=== PATIENT | male | born 1985 | race Caucasian/White ===

== ENCOUNTER 2020-06-11 07:22 | Emergency (ER) | payer OTHER, SELFPAY ==
--- NOTE | ~2020-06-11 | CT_ITS ---
EXAMINATION: CT abdomen pelvis wo con CLINICAL INFORMATION: Reason for Exam R flank pain COMPARISON: No prior CT available for comparison. TECHNIQUE: Multidetector volumetric imaging was performed from the superior aspect of the liver through the pubic symphysis , noncontrasted study. Sagittal and coronal reformatted images were obtained on the technologist's workstation. This CT examination was performed using dose optimization techniques as appropriate, variously including the following: *Automated exposure control *Adjustment of mA and/or kV according to patient size (this includes techniques or standardized protocols for targeted exams where dose is matched to indication/reason for exam; i.e. extremities or head) *Use of iterative reconstruction technique DLP: 691 mGy-cm FINDINGS: LOWER THORAX: Included lung bases are clear. HEPATOBILIARY: No focal hepatic lesions. No biliary ductal dilatation. GALLBLADDER: Gallbladder unremarkable. SPLEEN: Spleen is normal in size. PANCREAS: No focal mass or ductal dilatation. STOMACH AND GASTROINTESTINAL TRACT: Stomach is grossly unremarkable. There is no bowel distention or thickening. Appendix is normal in size, hyperdense material in its tip. Clear periappendiceal fat. No CT evidence of appendicitis. ADRENALS: No adrenal nodules. KIDNEYS/URETERS: There is right renal hydronephrosis and hydroureter secondary to obstructing stone in the proximal right ureter which measure about 4 mm axially, no perinephric fat stranding, there are additional tiny 1 and 2 mm nonobstructing stones in the right kidney. And 2 mm nonobstructing stone in the left kidney. URINARY BLADDER: Partially decompressed. PELVIC VISCERA: Unremarkable PERITONEUM: No free air or fluid. LYMPH NODES: No lymphadenopathy. VASCULAR:Abdominal aorta normal in size, no aneurysm found. BONES, ABDOMINAL WALL AND SOFT TISSUES: Age-appropriate changes of the spine and skeletal system, no destructive osteolytic or osteosclerotic bone lesion found CT/CT abdomen pelvis wo con IMPRESSION: 1. Mild right renal hydronephrosis secondary to obstructing stone in the proximal right ureter measure about 4 mm in diameter. 2. There are additional tiny 1 and 2 mm nonobstructing stones in both kidneys. Perinephric fat remain clear.
[2020-06-11 07:55] VITALS: BP 147/88; PULSE 72; RESP 20; O2SAT 99; BMI 32.3
--- NOTE | 2020-06-11 08:06 | ED_ITS ---
HPI - Male Genitourinary General Chief complaint: Urogenital-Male Stated complaint: QUEST KIDNEY STONE BACK PAIN Time Seen by Provider: 06/11/20 08:04 Source: patient Mode of arrival: ambulatory Limitations: no limitations History of Present Illness HPI Narrative: R flank pain just prior to arrival radiates to lower abdomen MD Complaint: other (R flank pain) Onset (ago): hour(s) (1) Duration: constant Location: right flank Radiation: right inguinal region Severity: severe Quality: sharp Relieving factors: none Exacerbating factors: none Context: other (has known kidney stones) Associated symptoms: Reports nausea/vomiting Related Data Previous Rx's Medication Instructions Recorded hydrocodone-acetaminophen 1 tab PO Q6H PRN #15 tab 06/11/20 ondansetron 4 mg PO Q8H PRN #20 tab 06/11/20 prednisone 40 mg PO DAILY 5 Days #10 tab 06/11/20 tamsulosin 0.4 mg PO DAILY 5 Days #5 cap 06/11/20 Allergies Allergy/AdvReac Type Severity Reaction Status Date / Time No Known Allergies Allergy Verified 06/11/20 08:04 Review of Systems Review of Systems: Constitutional : No Fever, No Chills ENT/Mouth : No sore throat Eyes: No Eye Pain, No Swelling, No Redness Cardiovascular : No Chest Pain, No SOB Respiratory : No Cough, No Sputum, No Wheezing Gastrointestinal : positive Nausea, no Vomiting, No Diarrhea, positive abdominal pain Genitourinary : no Dysuria, no urinary frequency, no Hematuria, positive Flank Pain, no hesitancy Musculoskeletal : No joint pain, No Myalgias Skin : No Skin Lesions, No rash Neuro : No Weakness, No Numbness, No Headache Psych : No Anxiety/Panic, No Depression Heme/Lymph: No Bruising, No Lymphadenopathy Endocrine : No Polyuria, No Polydipsia All other systems reviewed and are negative PMFSH Past Medical History Attestation statement: The following information was validated with the patient. Medical History Kidney stones No known health problems Social History Social History (Updated 06/11/20 @ 08:08 by Sinai Kelley DO) Alcohol intake: never Smoking Status: Never smoker Smoked in Last 30 Days: No Use of substances other than those prescribed or required for medical reasons: No Advance Directives: No Advance Directives Information Provided: No Physical Exam Vital Signs: Vital Signs: Last Vital Signs Pulse 72 06/11/20 09:16 Resp 16 06/11/20 09:16 BP 113/76 06/11/20 09:16 Pulse Ox 97 06/11/20 09:16 Body Mass Index 32.3 Appearance: Alert. Oriented X3. No acute distress. Eyes: Pupils equal, round and reactive to light. ENT: Pharynx normal. Neck: Normal inspection. Neck supple. CVS: Normal heart rate and rhythm. Pulses normal. Respiratory: No respiratory distress. Breath sounds normal. Abdomen: Soft and nontender. Skin: Skin warm and dry. pale skin color. Normal skin turgor. Extremities: No lower extremity edema. No calf ttp Neuro: Oriented X 3. No motor deficit. No sensory deficit. Course Course Course Narrative: pain well controlled, no vomiting, stable for DC with Urology follow up MDM - Male Genitourinary MDM Narrative Medical decision making narrative: 34 yo male with known kidney stones but no prior episodes that caused pain comes in with R flank pain radiating to groin - at this time will need labs, UA, IV Toradol/morphine for pain, CT scan for renal colic. Lab Data Result diagrams: 06/11/20 08:06 06/11/20 08:06 Labs: Lab Results 06/11/20 06/11/20 06/11/20 Range/Units 08:06 08:06 08:06 WBC 8.0 (4.8-10.8) X10*3/uL RBC 5.08 (4.60-5.80) X10*6/uL Hgb 14.2 (14.0-18.0) g/dl Hct 43.0 (42-52) % MCV 84.6 (80-98) fL MCH 28.0 (27.0-33.0) pg MCHC 33.0 (31.0-36.0) g/dl RDW 12.3 (11.0-16.0) % Plt Count 282 (160-400) X10*3/uL MPV 10.0 (9.4-12.4) fL Immature Gran % (Auto) 0.2 (0.0-0.4) % Neut % (Auto) 51.0 (45-73) % Lymph % (Auto) 40.0 (20-40) % [place] % (Auto) 5.3 (2-11) % Eos % (Auto) 3.0 (0-4) % Baso % (Auto) 0.5 (0-2) % Lymph # (Auto) 3.2 (1.2-4.9) X10*3/uL [place] # (Auto) 0.4 (0.1-1.2) X10*3/uL Eos # (Auto) 0.2 (0.0-0.4) X10*3/uL Baso # (Auto) 0.0 (0.0-0.2) X10*3/uL Abs Immat Gran (auto) 0.02 (0.00-0.03) X10*3/uL Absolute Neuts (auto) 4.1 (2.0-8.3) X10*3/uL Absolute Nucleated RBC 0.000 (0.0-0.012) X10*3/uL Nucleated RBC % (auto) 0.0 (0.0-0.2) /100WBC Hold Blue Top SEE NOTE Sodium 140 (135-145) mmol/L Potassium 3.6 (3.3-5.1) mmol/L Chloride 106 (96-108) mmol/L Carbon Dioxide 22 (22-29) mmol/L Anion Gap 16 (12-20) BUN 19 H (9-16) mg/dL Creatinine 1.03 (0.5-1.4) mg/dL Estim Creat Clear Calc 123.2 Estimated GFR > 60 Random Glucose 139 H (60-115) mg/dL Calcium 9.0 (8.4-10.2) mg/dL Magnesium 2.1 (1.6-2.6) mg/dL Total Bilirubin 0.5 (0.0-1.0) mg/dL Direct Bilirubin 0.2 (0.0-0.5) mg/dL AST 23 (5-37) U/L ALT 57 H (0-40) U/L Alkaline Phosphatase 57 (39-117) U/L Total Protein 7.4 (6.5-8.0) g/dL Albumin 4.6 (3.5-5.0) g/dL Lipase 20 (8-78) U/L Urine Color Urine Appearance Urine pH (5.0-8.0) Ur Specific [place] (1.005-1.025) Urine Protein (NEG-TRACE) MG/DL Urine Glucose (UA) (NEG) MG/DL Urine Ketones (NEG) MG/DL Urine Blood (NEG) Urine Nitrite (NEG) Ur Leukocyte Esterase (NEG) 06/11/20 Range/Units 09:52 WBC (4.8-10.8) X10*3/uL RBC (4.60-5.80) X10*6/uL Hgb (14.0-18.0) g/dl Hct (42-52) % MCV (80-98) fL MCH (27.0-33.0) pg MCHC (31.0-36.0) g/dl RDW (11.0-16.0) % Plt Count (160-400) X10*3/uL MPV (9.4-12.4) fL Immature Gran % (Auto) (0.0-0.4) % Neut % (Auto) (45-73) % Lymph % (Auto) (20-40) % [place] % (Auto) (2-11) % Eos % (Auto) (0-4) % Baso % (Auto) (0-2) % Lymph # (Auto) (1.2-4.9) X10*3/uL [place] # (Auto) (0.1-1.2) X10*3/uL Eos # (Auto) (0.0-0.4) X10*3/uL Baso # (Auto) (0.0-0.2) X10*3/uL Abs Immat Gran (auto) (0.00-0.03) X10*3/uL Absolute Neuts (auto) (2.0-8.3) X10*3/uL Absolute Nucleated RBC (0.0-0.012) X10*3/uL Nucleated RBC % (auto) (0.0-0.2) /100WBC Hold Blue Top Sodium (135-145) mmol/L Potassium (3.3-5.1) mmol/L Chloride (96-108) mmol/L Carbon Dioxide (22-29) mmol/L Anion Gap (12-20) BUN (9-16) mg/dL Creatinine (0.5-1.4) mg/dL Estim Creat Clear Calc Estimated GFR Random Glucose (60-115) mg/dL Calcium (8.4-10.2) mg/dL Magnesium (1.6-2.6) mg/dL Total Bilirubin (0.0-1.0) mg/dL Direct Bilirubin (0.0-0.5) mg/dL AST (5-37) U/L ALT (0-40) U/L Alkaline Phosphatase (39-117) U/L Total Protein (6.5-8.0) g/dL Albumin (3.5-5.0) g/dL Lipase (8-78) U/L Urine Color YELLOW Urine Appearance CLEAR Urine pH 5.5 (5.0-8.0) Ur Specific [place] 1.020 (1.005-1.025) Urine Protein NEG (NEG-TRACE) MG/DL Urine Glucose (UA) NEG (NEG) MG/DL Urine Ketones NEG (NEG) MG/DL Urine Blood 3+ H (NEG) Urine Nitrite NEG (NEG) Ur Leukocyte Esterase NEG (NEG) Discharge Plan Discharge Clinical Impression: Renal colic Patient Disposition: Home, Self-Care Instructions: Renal Colic (ED) Additional Instructions: return to ED for any worsening symptoms or concerns if you do not feel better or feel like you passed the stone by Friday call Urologist Prescriptions: New hydrocodone-acetaminophen 5-325 mg tablet 1 tab PO Q6H PRN (Reason: pain) Qty: 15 RF: 0 prednisone 20 mg tablet 40 mg PO DAILY 5 Days Qty: 10 RF: 0 ondansetron 4 mg tablet,disintegrating 4 mg PO Q8H PRN (Reason: nausea and vomiting) Qty: 20 RF: 0 tamsulosin 0.4 mg capsule 0.4 mg PO DAILY 5 Days Qty: 5 RF: 0 Referrals: Willem Molina MD [Physician] - 2 days (if not better) Stand Alone Forms: Work/School Release
[2020-06-11 08:10] LABS: MANUAL DIFF FLAG NO
[2020-06-11 08:11] LABS: Basophils Percent Auto 0.5 % (0-2); Eosinophils Absolute Auto 0.2 X10*3/uL (0.0-0.4); Hemoglobin 14.2 g/dl (14.0-18.0); Imm Gran Abs Auto 0.02 X10*3/uL (0.00-0.03); Imm Gran Pct Auto 0.2 % (0.0-0.4); Lymphocytes Absolute Auto 3.2 X10*3/uL (1.2-4.9); Mean Corpuscular Volume 84.6 fL (80-98); Monocytes Absolute Auto 0.4 X10*3/uL (0.1-1.2); Monocytes Percent Auto 5.3 % (2-11); Neutrophils Absolute Auto 4.1 X10*3/uL (2.0-8.3); Platelet Count 282 X10*3/uL (160-400); Red Blood Count 5.08 X10*6/uL (4.60-5.80); Red Cell Distribution Width 12.3 % (11.0-16.0)
[2020-06-11] MEDS: 0.9 % Sodium Chloride 1,000 ML 999 ML IVCONT (08:11)
[2020-06-11] MEDS: ondansetron HCL 4 MG/2 ML VIAL IVPUSH (08:11)
[2020-06-11] MEDS: Ketorolac Tromethamine 30 MG/ML VIAL IVPUSH (08:11)
[2020-06-11] MEDS: Morphine Sulfate 4 MG/ML CARTRIDGE IVPUSH (08:11)
[2020-06-11 08:39] LABS: Alanine Aminotransferase 57 U/L (0-40); Albumin Level 4.6 g/dL (3.5-5.0); Alkaline Phosphatase 57 U/L (39-117); Anion Gap 16 (12-20); Aspartate Amino Transferase 23 U/L (5-37); Bilirubin Direct 0.2 mg/dL (0.0-0.5); Bilirubin Total 0.5 mg/dL (0.0-1.0); Blood Urea Nitrogen 19 mg/dL (9-16); Carbon Dioxide 22 mmol/L (22-29); Chloride 106 mmol/L (96-108); Creatinine Clr Calc Pharmacy 123.2; Estimated Glomerular Filt Rate > 60; Glucose Random 139 mg/dL (60-115); Lipase 20 U/L (8-78); Magnesium 2.1 mg/dL (1.6-2.6); Potassium 3.6 mmol/L (3.3-5.1); Sodium 140 mmol/L (135-145); Total Protein 7.4 g/dL (6.5-8.0)
[2020-06-11 09:16] VITALS: BP 113/76; PULSE 72; RESP 16; O2SAT 97
[2020-06-11] MEDS: Tamsulosin HCL 0.4 MG CAPSULE PO (09:53)
[2020-06-11] MEDS: methylPREDNISolone Sod Succ/PF 125 MG/2 ML VIAL 60 MG IVPUSH (09:55)
[2020-06-11 10:19] LABS: Glucose Urine UA NEG (NEG); Leukocyte Esterase Urine NEG (NEG); Nitrite Urine NEG (NEG); PH 5.5 (5.0-8.0); Urine Blood 3+ (NEG); Urine Ketones NEG (NEG); Urine Protein NEG (NEG-TRACE)
[2020-06-11 10:25] LABS: Appearance Urine CLEAR; Color Urine YELLOW
[2020-06-11 10:50] LABS: Mucus Urine TRACE /LPF; WBC Urine 0 /HPF (0-4)
== END 2020-06-11 11:41 | disposition home or self-care (01) ==
PROVIDERS: Emergency Provider Emergency Medicine; PCP Internal Medicine
DX: N13.2 Hydronephrosis with renal and ureteral calculous obstruction (principal); Z87.442 Personal history of urinary calculi
CPT/HCPCS: 36415; 74176; 80048; 80076; 81001; 81003; 83690; 83735; 85025; 96361; 96374; 96375; 99284; 99285; J1885; J2270; J2405; J2930

== ENCOUNTER → 2020-06-20 11:14 | Outpatient (BNVA) | payer OTHER, SELFPAY | PROVIDERS: PCP Internal Medicine; Visit Provider Urology ==

== ENCOUNTER 2020-06-29 09:25 | Outpatient (REF) | payer OTHER, SELFPAY ==
--- NOTE | ~2020-06-29 | US_ITS ---
EXAMINATION: US RETROPERITONEAL LIMITED (RENAL ONLY) CLINICAL INFORMATION: Renal calculus. COMPARISON: CTA abdomen of 06/11/2020. TECHNIQUE: Bilateral renal ultrasound. FINDINGS: RIGHT KIDNEY: 12.2 x 5.7 x 5.8 cm (SAG x AP x TRV). The kidney is normal in size, contour, and echogenicity. Renal cortical thickness is normal. Within the upper- to midpole, there is an echogenic focus measuring 5 mm in diameter and likely represents a nonobstructing calculus. No hydronephrosis. LEFT KIDNEY: 11.9 x 5.3 x 6.3 cm (SAG x AP x TRV). Within the midpole, there is a 4 mm echogenic focus, likely representing a nonobstructing calculus. Renal cortical thickness is normal. No focal parenchymal lesion. No hydronephrosis. US/US renal BI IMPRESSION: Bilateral nephrolithiasis without evidence of obstructive uropathy.
== END 2020-06-29 09:26 | disposition home or self-care (01) ==
LOC: HO.US 09:25
PROVIDERS: Visit Provider Urology
DX: N20.0 Calculus of kidney (principal)
CPT/HCPCS: 76775

== ENCOUNTER → 2020-07-11 10:23 | Outpatient (BNVA) | payer OTHER, SELFPAY | PROVIDERS: Visit Provider Urology ==

== ENCOUNTER 2021-06-14 08:55 | Outpatient (REF) | payer OTHER, SELFPAY ==
--- NOTE | ~2021-06-14 | US_ITS ---
EXAMINATION: US RETROPERITONEAL LIMITED (RENAL ONLY) CLINICAL INFORMATION: Renal stones. COMPARISON: CT abdomen and pelvis 06/11/2020. Renal ultrasound 06/29/2020. TECHNIQUE: Real-time imaging of the kidneys. FINDINGS: RIGHT KIDNEY: 11.9 x 6.5 x 6.7 cm (SAG x AP x TRV). The kidney is normal in size, contour, and echogenicity. Renal cortical thickness is normal. There is a small 5 mm cyst exophytic to the midpole. No renal calculi or hydronephrosis. Previously identified right renal stone is not seen. LEFT KIDNEY: 11.1 x 5.6 x 6 cm (SAG x AP x TRV). The kidney is normal in size, contour, and echogenicity. Renal cortical thickness is normal. There is a 5 x 6 mm stone in the midpole. No focal parenchymal lesions or hydronephrosis. US/US renal BI IMPRESSION: Left renal stone. Small right renal cyst.
== END 2021-06-14 08:56 | disposition home or self-care (01) ==
LOC: HO.US 08:55
PROVIDERS: Visit Provider Urology
DX: N20.0 Calculus of kidney (principal)
CPT/HCPCS: 76775

== ENCOUNTER → 2021-07-25 12:58 | Outpatient (BNVA) | payer OTHER, SELFPAY | PROVIDERS: Visit Provider Urology | DX: N20.0 Calculus of kidney (principal) | CPT/HCPCS: Q3014 ==

== ENCOUNTER → 2021-10-25 07:45 | Outpatient (BNVA) | payer OTHER, SELFPAY | PROVIDERS: Visit Provider Internal Medicine | DX: S50.02XA Contusion of left elbow, initial encounter (principal); W22.8XXA Striking against or struck by other objects, initial encounter | CPT/HCPCS: 73080; 99203 ==

== ENCOUNTER 2021-11-06 07:28 | Outpatient (REF) | payer OTHER, SELFPAY ==
--- NOTE | ~2021-11-06 | XR_ITS ---
EXAMINATION: XR ELBOW, LEFT CLINICAL INFORMATION: Pain COMPARISON: Previous x-ray October 2021 TECHNIQUE: AP, lateral, and oblique views of the left elbow. FINDINGS: There is an olecranon osteophyte at the triceps tendon insertion. There is a lucency at the base of the osteophyte again questionable for fracture. This is similar to previous exam. Overlying soft tissues are normal. There is a well-corticated soft tissue ossification adjacent to the posterior superior olecranon probably representing an accessory ossicle. No other fracture. Bone alignment is normal. Joint spaces are normal. There is no joint effusion. XR/XR elbow LT min 3V IMPRESSION: Lucency at the base of the olecranon osteophyte questionable for fracture. This is similar to 10/25/2021 exam. Overlying soft tissues are normal. Clinical correlation recommended.
== END 2021-11-06 07:29 | disposition home or self-care (01) ==
LOC: HO.HOSX 07:28
PROVIDERS: Visit Provider Physician Assistant
DX: S46.302A Unspecified injury of muscle, fascia and tendon of triceps, left arm, initial encounter (principal)
CPT/HCPCS: 73080; 99202

== ENCOUNTER 2021-11-16 10:45 | Outpatient (RCR) | payer OTHER, SELFPAY ==
--- NOTE | 2021-11-16 13:02 | MHC.OT.OEV ---
[address] [phone] F: [phone] Occupational Therapy Evaluation Diagnosis: Triceps avulsion . Injury of triceps Date of Onset: 10/25/21 Date of Surgery: Attending Provider: Adi West PA-C Prescribed Treatment: Eval and treat , Gentle ROM ex MD Follow Up Appointment: 12/03/21 History of Current Condition: Pt reports hitting his elbow on a seat belt column while working XR taken and pt referred to Orthopedics here at [facility]. 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 avoiding golf and body wt ex, otherwise no difficulty doing house and yard work, painting rooms. Sleep: WNL Driving: WNL Vision: Balance: Pain Assessment Pain Score: 5 Pain Scale Used: Numeric (0 - 10) Pain Location and Description: Denies pain unless elbow is bumped, brief pain at ~5 Aggravating Factors: Only brief with bumping elbow Alleviating Factors: NA Skin and Soft Tissue Assessment Skin and Soft Tissue: Comments: No abnormalities noted Nerve assessment Ulnar Nerve: Median Nerve: Radial Nerve: Comments: Sensory Assessment Temperature: Light Touch: WNL Proprioception: Vibration: Comments: Edema Assessment Upper Extremity: WNL Lower Extremity: Comments: Dexterity Assessment Dexterity: WNL Comments: Special Tests Comments: AROM(PROM) Strength Cervical Cervical Flexion: Cervical Extension: Cervical Lateral Flexion: Cervical Rotation: Comments: Shoulder Flexion: Extension: Abduction: Internal Rotation: External Rotation: Comments: WNL. Foreward head , round , sloping shoulders bilaterally Flexion: Extension: Abduction: Internal Rotation: External Rotation: Comments: WNL Elbow Flexion: Extension: Pronation: Supination: Comments: WNL Flexion: Extension: Pronation: Supination: Comments: Wrist Flexion: Extension: Ulnar Deviation: Radial Deviation: Comments: WNL Flexion: Extension: Ulnar Deviation: Radial Deviation: Comments: Thumb Thumb CMC Flexion: Thumb MCP Flexion: Thumb IP Flexion: Radial Abduction: Palmar Abduction: Keavy (Kapandji 0-10): Comments: WNL Digits Index MCP: PIP: DIP: Long MCP: PIP: DIP: Ring MCP: PIP: DIP: Small MCP: PIP: DIP: Comments: Gross Grasp: R 125 lb L 105 lb painfree Lateral Pinch: Two-Point Pinch: Three-Jaw Oumar: Comments: WNL Patient Education Primary Language: Frisian Customer Service Assistant Required: No Current Knowledge: Understands information with skills for self-management Teaching Method: Demonstration Verbal Education Needs Identified on Evaluation: How did patient/family demonstrate learning? Patient demonstrates Patient verbalizes Barriers to Learning: None Readiness for Learning: Accepting Who was educated? 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 He is indep in HEP for maintaining mobility I anticipate pt to begin resuming his gym work outs following his follow up with Orthopedics , 5 wks post injury. He has been instructed on upper body stretching and elbow ROM ex Skilled OT is not needed at this time. STG Duration: NA Short Term Goals: NA LTG Duration: Prison Goals: NA Frequency and Duration: The patient will be seen NA Treatment Plan: Home Exercise Program Electronically Signed By: Arline Hickman OT CHT CLT Reviewed/agree with student documentation: N/A Therapist: Please sign and return to therapist, Thank you for your referral.
--- NOTE | 2021-11-16 13:02 | MHC.OT.DC ---
[address] [phone] F: [phone] Occupational Therapy Discharge Note Provider: Adi West PA-C Diagnosis: Triceps avulsion . 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 He reports brief pain only if he bumps his elbow. He is indep in HEP for maintaining mobility I anticipate pt to begin resuming his gym work outs following his follow up with Orthopedics , 5 wks post injury on 12/03/21 He has been instructed on upper body stretching and elbow ROM ex Skilled OT is not needed at this time. Electronically Signed By: Arline Hickman OT CHT CLT Reviewed/agree with student documentation: N/A Therapist: Please Sign and return to therapist, thank you for your referral.
== END 2021-12-12 16:47 | disposition home or self-care (01) ==
LOC: HO.OT 10:45
PROVIDERS: PCP Internal Medicine; Visit Provider Physician Assistant
DX: S46.301D Unspecified injury of muscle, fascia and tendon of triceps, right arm, subsequent encounter (principal)
CPT/HCPCS: 97110; 97165

== ENCOUNTER 2021-12-05 07:47 | Outpatient (REF) | payer OTHER, SELFPAY ==
--- NOTE | ~2021-12-05 | XR_ITS ---
EXAMINATION: XR ELBOW, LEFT CLINICAL INFORMATION: M25.522 - Pain in left elbow COMPARISON: Radiographs left elbow 11/06/2021, 10/25/2021 TECHNIQUE: AP, lateral, and oblique views of the left elbow. FINDINGS: There is a detached olecranon spur again seen with distraction of the spur by 1.2 mm. There is no overlying soft tissue swelling and no intracapsular elbow effusion. Corticated ossicle at proximal ulnar adjacent to humerus is stable. There is no acute or healing fracture or dislocation from prior study. No joint narrowing or erosive changes. Normal bony mineralization. No periostitis. XR/XR elbow LT min 3V IMPRESSION: -Degenerative spur olecranon spur similar to prior study. No overlying soft tissue swelling or effusion. -Corticated ossicle proximal ulnar stable. -No joint narrowing or erosive changes.
== END 2021-12-05 07:48 | disposition home or self-care (01) ==
LOC: HO.HOSX 07:47
PROVIDERS: Visit Provider Physician Assistant
DX: M25.522 Pain in left elbow (principal)
CPT/HCPCS: 73080